=== PATIENT | female | born 1995 | race Two or more races ===

== ENCOUNTER 2018-07-27 15:13 | Emergency (ER) | payer SELFPAY ==
[~2018-07-27] VITALS: Ht 154.9 cm; Wt 56.2 kg
[2018-07-27] MEDS ORDERED: TETRACAINE HCL 0.5% OPTH(EYE) SOLN 4ML RIGHTEYE ONE (19:30)
[2018-07-27 19:35] VITALS: BP 122/68
[2018-07-27] MEDS ORDERED: HYDROcodone-ACET 5/325MG TAB PO ONE (21:00)
[2018-07-27] MEDS ORDERED: NEOMYCIN-POLYM-GRAM OPTH(EYE) SOL 10ML EACHEYE ONE (21:00)
[2018-07-27 21:06] LABS: Urine Bacteria FEW /hpf (None Seen); Urine Blood Negative /uL (Negative); Urine Mucus FEW (None Seen); Urine Specific Gravity 1.014 (1.001-1.035); Urine WBC 12 /hpf (0 - 5)
== END 2018-07-27 21:27 | disposition home or self-care (01) ==
LOC: ER 15:22
DX: H10.31 Unspecified acute conjunctivitis, right eye (principal)
CPT/HCPCS: 81001

== ENCOUNTER → 2022-08-11 | Outpatient (CLI) | payer BC ==
[2022-08-11 08:58] LABS: Basophils # (auto) 0 10 ^3/uL (0-0.2); Basophils % (auto) 0.5 % (0.0-2.0); Eosinophils # (auto) 0.1 10 ^3/uL (0-0.8); Eosinophils % (auto) 1.1 % (0.0-7.0); Hematocrit 39.3 % (36.0-46.0); Hemoglobin 13.3 g/dL (12.2-16.2); Lymphocytes # (auto) 1.7 10 ^3/uL (0.4-5.4); Lymphocytes % (auto) 25.9 % (10.0-50.0); Mean Corpuscular Hemoglobin 30.4 pg (28.0-32.0); Mean Corpuscular Hgb Conc. 33.8 g/dL (32.0-36.0); Mean Corpuscular Volume 89.9 fL (80.0-100.0); Monocytes # (auto) 0.6 10 ^3/uL (0-1.3); Neutrophils % (auto) 62.5 % (37.0-80.0); Nucleated Red Blood Cells % 0.1 %; Red Blood Cells 4.37 10^6/uL (4.0-5.20); White Blood Cell 6.4 10^3/uL (4.4-10.8)
[2022-08-11 09:03] LABS: Urine Bacteria NONE SEEN /hpf (None Seen); Urine Blood Negative /uL (Negative); Urine Mucus FEW (None Seen); Urine Specific Gravity 1.019 (1.001-1.035); Urine WBC 1 /hpf (0 - 5)
[2022-08-11 10:12] LABS: Potassium 3.4 mmol/L (3.5-5.1)
[2022-08-11 10:28] LABS: Albumin 3.6 g/dL (3.4-5.0); BUN/Creatinine Ratio 15.2 (10.0-20.0); Bilirubin, Total 1.2 mg/dL (0.2-1.0); Calcium 8.3 mg/dL (8.5-10.1)
[2022-08-11 10:50] LABS: Free T4 (Free Thyroxine) 1.06 ng/dL (0.89-1.76); Leuteinizing Hormone 10.1 IU/L; Prolactin 21.25 ng/mL (2.8-29.2)
[2022-08-11 10:51] LABS: Follicle Stimulating Hormone 5.87 IU/L (SEE BELOW)
== END | disposition home or self-care (01) ==
LOC: LAB 08:37
PROVIDERS: ATTEND Student in an Organized Health Care Education/Training Program
DX: R73.9 Hyperglycemia, unspecified (principal); N92.6 Irregular menstruation, unspecified; Z20.2 Contact with and (suspected) exposure to infections with a predominantly sexual mode of transmission
CPT/HCPCS: 36415; 80053; 80061; 81001; 83001; 83002; 83036; 84146; 84403; 84439; 84443; 85025; 97163